=== PATIENT | male | born 1990 | race Caucasian/White ===

== ENCOUNTER 2023-11-11 19:57 | Emergency (ER) | payer OTHER ==
[2023-11-11 20:48] LABS: Absolute Eosinophils 0.3 K/uL (0-0.5); Absolute Lymphocytes (CBC) 1.7 K/uL (0.7-4.9); Absolute Monocytes 0.7 K/uL (0.1-1.3); Absolute Neutrophil 3.4 K/uL (1.8-8.0); Basophils % 0.3 % (0-1.3); Eosinophils % 4.8 % (0-4.4); Hematocrit 41.8 % (39.6-49.0); Hemoglobin 14.4 g/dL (13.6-17.9); Lymphocytes % 28.2 % (15.3-44.8); MCH 30.5 pg (27.0-35.0); MCHC 34.4 g/dL (32.0-36.0); MCV 88.6 fL (80-100); MPV 8.3 fL (7.6-11.3); Monocytes % 11.3 % (3.3-12.3); Neutrophils % 55.4 % (41.7-73.7); Nucleated Red Blood Cells % 0.2 % (0-0); Platelets 225 thou/uL (152-406); RBC Red Blood Cell Count 4.71 M/uL (4.33-5.43); Red Cell Distribution Width 13.2 % (12.1-15.2)
--- NOTE | 2023-11-11 21:07 | RAD REPORT ---
EXAM DESCRIPTION: Kirti Single View11/11/2023 8:46 pm CLINICAL HISTORY: Chest pain COMPARISON: none FINDINGS: The lungs appear clear of acute infiltrate. The heart is normal size IMPRESSION: No acute abnormalities displayed
[2023-11-11 21:37] LABS: D-Dimer < 215 FEUng/mL (<500); PT Prothrombin Time 11.9 SECONDS (9.5-12.5); Protime INR 1.08
[2023-11-11 21:52] LABS: Albumin 4.4 g/dL (3.4-5.0); Albumin/Globulin Ratio 1.2 (1.1-1.8); Anion Gap 7.6 mEq/L (5.0-15.0); Bilirubin Direct 0.2 mg/dL (0-0.2); Bilirubin Indirect, Calculated 0.2 mg/dL (0.2-0.8); Bilirubin Total 0.4 mg/dL (0.2-1.0); Globulin 3.7 g/dL (2.3-3.5); Magnesium 2.4 mg/dL (1.6-2.4); Potassium 3.6 mEq/L (3.5-5.1); Protein, Total 8.1 g/dL (6.4-8.2); Troponin High Sensitivity 36.1 pg/mL (<58.9)
--- NOTE | 2023-11-11 22:04 | EDPHYS ---
Physician Documentation [facility] Name: Shin Adamson Age: 33 yrs Sex: Male : 1990 Arrival Date: 11/11/2023 Time: 19:57 Bed 7 Private MD: ED Physician Nicola Olivera HPI: 11/10 20:11 This 33 yrs old Male presents to ER via Unassigned with complaints of Chest Pain - sb4 abnormal EKG. 20:13 Patient reports palpitations for about a week now. He states that he has had sb4 palpitations in the past but normally they are very short lasting. He states that he has been under a lot of stress at work this week. States that he went to an urgent care to have it evaluated today and they told him his EKG was abnormal and to come to the ED. He does endorse some pressure on his chest but no pain. Denies any shortness of breath. Denies any family history of any cardiac issue. Historical: - Allergies: 21:43 No Known Allergies; jb4 - PMHx: 21:43 None; jb4 - PSHx: 21:43 None; jb4 - Immunization history:: Adult Immunizations up to date. - Infectious Disease History:: Denies. - Social history:: Smoking status: Patient denies any tobacco usage or history of. ROS: 20:13 Constitutional: Negative for fever, chills, and weight loss, sb4 20:13 Cardiovascular: Positive for chest pain, palpitations, 20:13 All other systems are negative, Exam: 20:13 Constitutional: This is a well developed, well nourished patient who is awake, alert, sb4 and in no acute distress. Head/Face: Normocephalic, atraumatic. Eyes: Extra-ocular motions intact. Periorbital areas with no swelling, redness, or edema. ENT: Mucous membranes moist. Cardiovascular: Regular rate and rhythm with a normal S1 and S2. Respiratory: Lungs have equal breath sounds bilaterally, clear to auscultation and percussion. No rales, rhonchi or wheezes noted. No increased work of breathing, no retractions or nasal flaring. Abdomen/GI: Soft, non-tender, no distension. Skin: Warm, dry with normal turgor. Normal color with no rashes, no lesions, and no evidence of cellulitis. MS/ Extremity: Pulses equal, no cyanosis. Neurovascular intact. Full, normal range of motion. Neuro: Awake and alert, GCS 15, oriented to person, place, time, and situation. Motor strength 5/5 in all extremities. Sensory grossly intact. Vital Signs: 20:13 BP 130 / 61; Pulse 74; Resp 23; Pulse Ox 100% on R/A; Weight 73.03 kg (R); Height 6 ft. jb4 2 in. ; Pain 5/10; 21:00 BP 109 / 74; Pulse 70; Resp 20; Pulse Ox 100% ; ha1 22:18 BP 120 / 86; Pulse 74; Resp 17; Temp 97.8; Pulse Ox 98% ; ha1 20:13 Body Mass Index 20.67 (73.03 kg, 187.96 cm) jb4 20:13 Pain Scale: Adult jb4 MDM: 20:05 Patient medically screened. sb4 22:03 Data reviewed: vital signs, nurses notes, lab test result(s), EKG, radiologic studies, sb4 I have discussed the patient's presentation/case with the attending Emergency Department Physician; and as a result, I will discharge patient. 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 11/10 20:09 Order name: Basic Metabolic Panel; Complete Time: 21:53 sb4 11/10 20:09 Order name: CBC with Diff; Complete Time: 20:56 sb4 11/10 20:09 Order name: D-Dimer; Complete Time: 21:38 sb4 11/10 20:09 Order name: LFT's; Complete Time: 21:53 sb4 11/10 20:09 Order name: Magnesium; Complete Time: 21:53 sb4 11/10 20:09 Order name: NT PRO-BNP; Complete Time: 21:53 sb4 11/10 20:09 Order name: PT-INR; Complete Time: 21:38 sb4 11/10 20:09 Order name: Troponin HS; Complete Time: 21:53 sb4 11/10 20:09 Order name: XRAY Chest (1 view); Complete Time: 21:10 sb4 11/10 20:09 Order name: EKG; Complete Time: 20: sb4 11/10 20:09 Order name: Cardiac monitoring; Complete Time: 20:41 sb4 11/10 20:09 Order name: EKG - Nurse/Tech; Complete Time: 20:41 sb4 11/10 20:09 Order name: IV Saline Lock; Complete Time: 20:41 sb4 11/10 20:09 Order name: Labs collected and sent; Complete Time: 20:41 sb4 11/10 20:09 Order name: O2 Per Protocol; Complete Time: 20:41 sb4 11/10 20:09 Order name: O2 Sat Monitoring; Complete Time: :41 sb4 EC:17 Rate is 74 beats/min. Rhythm is regular, Normal Sinus Rhythm. Right axis deviation sb4 noted. HI interval is normal at 146 msec. QRS interval is normal at 94 msec. QT interval is normal at 378 msec. Clinical impression: NSR w/ Non-specific ST/T Changes. Interpreted by me. Reviewed by me. Administered Medications: No medications were administered Disposition Summary: 11/11/23 22:04 Discharge Ordered Notes: Location: Home sb4 Problem: new sb4 Symptoms: have improved sb4 Condition: Stable sb4 Diagnosis - Palpitations sb4 - Abnormal electrocardiogram [ECG] [EKG] - right axis deviation, incomplete right sb4 bundle branch block Followup: sb4 - With: Chandra Elias MD - When: 1 - 2 days - Reason: Recheck today's complaints, Re-evaluation by your physician Discharge Instructions: - Discharge Summary Sheet sb4 - Palpitations, [id number] sb4 - Right Bundle Branch Block sb4 Forms: - Thank You Letter sb4 - Patient Portal Instructions sb4 - Leadership Thank You Letter sb4 Addendum: 11/13/2023 01:15 I agree with the assessment and plan of care. e c2 Signatures: Dispatcher [employer] Mina Stevenson RN RN jb4 Augustina Arvizu, AMANDA PATEL sb4 Nicola Olivera MD MD ec2 Corrections: (The following items were deleted from the chart) 11/10 20:10 20:10 BASIC METABOLIC PANEL+C.LAB.BRZ ordered. EDMS EDMS 20:10 20:10 CBC+H.LAB.BRZ ordered. EDMS EDMS 20:10 20:10 D-DIMER+COAG.LAB.BRZ ordered. EDMS EDMS 20:10 20:10 HEPATIC FUNCTION+C.LAB.BRZ ordered. EDMS EDMS 20:10 20:10 MAGNESIUM+C.LAB.BRZ ordered. EDMS EDMS 20:10 20:10 PROBNP+C.LAB.BRZ ordered. EDMS EDMS 20:10 20:10 PROTIME (+INR)+COAG.LAB.BRZ ordered. EDMS EDMS 20:10 20:10 Troponin High Sensitivity+C.LAB.BRZ ordered. EDMS EDMS
--- NOTE | 2023-11-11 22:04 | ER ---
Nurse's Notes [facility] Name: Shin Adamson Age: 33 yrs Sex: Male : 1990 Arrival Date: 11/11/2023 Time: 19:57 Bed 7 Private MD: Diagnosis: Palpitations;Abnormal electrocardiogram [ECG] [EKG]-right axis deviation, incomplete right bundle branch block Presentation: 11/10 20:13 Chief complaint: Patient states: I have been having palpitations for the past week, jb4 they have become more regular. I went to an urgent care and they recommended I come here. The pain is a pressure pain in my chest that does not radiate. 20:13 Coronavirus screen: At this time, the client does not indicate any symptoms associated jb4 with coronavirus-19. Ebola Screen: No symptoms or risks identified at this time. Initial Sepsis Screen: Does the patient meet any 2 criteria? No. Patient's initial sepsis screen is negative. Does the patient have a suspected source of infection? No. Patient's initial sepsis screen is negative. Risk Assessment: Do you want to hurt yourself or someone else? Patient reports no desire to harm self or others. Onset of symptoms was November 04, 2023. Transition of care: patient was not received from another setting of care. 20:13 Method Of Arrival: Ambulatory jb4 20:13 Acuity: DOROTEO 2 jb4 Triage Assessment: 20:13 General: Appears in no apparent distress. comfortable, Behavior is calm, cooperative, jb4 appropriate for age. 20:13 Pain: Complains of pain in chest Pain does not radiate. Pain currently is 5 out of 10 jb4 on a pain scale. Quality of pain is described as pressure, Pain began 1 week ago. Neuro: Level of Consciousness is awake, alert, obeys commands, Oriented to person, place, time, situation. Cardiovascular: Patient's skin is warm and dry. Respiratory: Airway is patent Respiratory effort is even, unlabored, Respiratory pattern is regular, symmetrical. Derm: Skin is intact, Skin is pink, warm \T\ dry. Historical: - Allergies: 21:43 No Known Allergies; jb4 - PMHx: 21:43 None; jb4 - PSHx: 21:43 None; jb4 - Immunization history:: Adult Immunizations up to date. - Infectious Disease History:: Denies. - Social history:: Smoking status: Patient denies any tobacco usage or history of. Screenin:20 [facility] ED Fall Risk Assessment (Adult) History of falling in the last 3 months, ha1 including since admission No falls in past 3 months (0 pts) Confusion or Disorientation No (0 pts) Intoxicated or Sedated No (0 pts) Impaired Gait No (0 pts) Mobility Assist Device Used No (0 pt) Altered Elimination No (0 pt) Score/Fall Risk Level 0 - 2 = Low Risk. Abuse screen: Denies threats or abuse. Denies injuries from another. Nutritional screening: No deficits noted. Tuberculosis screening: No symptoms or risk factors identified. Assessment: 20:04 General: Appears comfortable, Behavior is calm, cooperative. Pain: Complains of pain in ha1 chest Pain does not radiate. Pain currently is 6 out of 10 on a pain scale. Quality of pain is described as pressure, Pain began 2-3 days ago. 20:04 Neuro: Level of Consciousness is awake, alert, obeys commands, Oriented to person, ha1 place, time, situation. Cardiovascular: Reports chest pain, palpitations, Heart tones S1 S2 present Capillary refill < 3 seconds Patient's skin is warm and dry. Rhythm is sinus rhythm. Respiratory: Airway is patent Respiratory effort is even, unlabored, Respiratory pattern is regular, symmetrical. Musculoskeletal: Circulation, motion, and sensation intact. Range of motion: intact in all extremities. 21:00 Reassessment: Patient and/or family updated on plan of care and expected duration. Pain ha1 level reassessed. Patient is alert, oriented x 3, equal unlabored respirations, skin warm/dry/pink. 22:18 Reassessment: Patient and/or family updated on plan of care and expected duration. Pain ha1 level reassessed. Patient is alert, oriented x 3, equal unlabored respirations, skin warm/dry/pink. Vital Signs: 20:13 BP 130 / 61; Pulse 74; Resp 23; Pulse Ox 100% on R/A; Weight 73.03 kg (R); Height 6 ft. jb4 2 in. ; Pain 5/10; 21:00 BP 109 / 74; Pulse 70; Resp 20; Pulse Ox 100% ; ha1 22:18 BP 120 / 86; Pulse 74; Resp 17; Temp 97.8; Pulse Ox 98% ; ha1 20:13 Body Mass Index 20.67 (73.03 kg, 187.96 cm) jb4 20:13 Pain Scale: Adult jb4 ED Course: 20:03 Patient arrived in ED. ra3 20:03 Augustina Arvizu PA-C is PHCP. sb4 20:03 Nicola Olivera MD is Attending Physician. sb4 20:04 Patient has correct armband on for positive identification. Bed in low position. Call ha1 light in reach. Side rails up X2. Adult w/ patient. Provided Education on: follow up with pcp . 20:04 Client placed on continuous cardiac and pulse oximetry monitoring. NIBP monitoring ha1 applied. personnel monitor on. 20:13 Arm band placed on right wrist. EKG completed in triage. Results shown to MD. jb4 20:30 Inserted saline lock: 20 gauge in right antecubital area, using aseptic technique. ha1 Blood collected. 20:30 Door closed. Noise minimized. Lights dimmed. Warm blanket given. ha1 20:41 Basic Metabolic Panel Sent. ha1 20:41 CBC with Diff Sent. ha1 20:41 D-Dimer Sent. ha1 20:42 LFT's Sent. ha1 20:42 Magnesium Sent. ha1 20:42 NT PRO-BNP Sent. ha1 20:42 PT-INR Sent. ha1 20:42 Troponin HS Sent. ha1 20:48 XRAY Chest (1 view) In Process Unspecified. EDMS 21:43 Triage completed. jb4 22:03 Chandra Elias MD is Referral Physician. sb4 22:19 IV discontinued, intact, bleeding controlled, No redness/swelling at site. Pressure ha1 dressing applied. 22:20 No provider procedures requiring assistance completed. ha1 22:21 O2 via room air. ha1 Administered Medications: No medications were administered Medication: 22:23 VIS not applicable for this client. ha1 Outcome: 22:04 Discharge ordered by . sb4 22:20 Discharged to home ambulatory, with family, ha1 22:20 Condition: stable 22:20 Discharge instructions given to patient, family, Instructed on discharge instructions, follow up and referral plans. Demonstrated understanding of instructions, follow-up care, 22:23 Patient left the ED. ha1 Signatures: Dispatcher [employer] EDAL Mina Dunbar RN RN jb4 Nancy Virgen, RN RN ha1 Augustina Arvizu, PAAndra PA-C sb4 Akosua Messer ra3
[2023-11-12 07:27] VITALS: BP 120/86; TEMP 97.8; O2SAT 98
== END 2023-11-11 22:23 | disposition home or self-care (01) ==
LOC: ER 19:57
DX: I45.19 Other right bundle-branch block (principal); R94.31 Abnormal electrocardiogram [ECG] [EKG]
CPT/HCPCS: 36415; 71045; 80048; 80076; 83735; 83880; 84484; 85025; 85379; 85610; 93005; 99285